=== PATIENT | male | born 1960 | race Native Hawaiian/Other Pacific Islander ===

== ENCOUNTER 2018-01-15 02:38 | Emergency (ER) | payer OTHER ==
[~2018-01-15] VITALS: Ht 182.9 cm; Wt 99.8 kg
[~2018-01-15 02:38] MED LIST: ASPIRIN ADULT L81 MG PO; METHADONE40 MG PO; [UNRECOGNIZED DRUG - OTHER] PO
[2018-01-15 03:47] LABS: PLATELET COUNT 210 K/uL (142-355)
[2018-01-15 03:50] LABS: POTASSIUM 3.7 mmol/L (3.6-5.2)
[2018-01-15 04:25] VITALS: BP 145/86; TEMP 98.6
== END 2018-01-15 04:25 | disposition home or self-care (01) ==
LOC: ED 02:38
DX: K59.09 Other constipation (principal); R11.2 Nausea with vomiting, unspecified
CPT/HCPCS: 36415; 74022; 80053; 81000; 82550; 82553; 84484; 85027; 93005; 96365; 96374; 96375; 99284; J2405

== ENCOUNTER 2019-01-21 12:11 | Emergency (ER) | payer OTHER ==
[~2019-01-21] VITALS: Ht 182.9 cm; Wt 99.8 kg
[2019-01-21 12:11] VITALS: BP 160/78; TEMP 98.1
== END 2019-01-21 15:08 | disposition home or self-care (01) ==
LOC: ED 12:11
DX: S20.212A Contusion of left front wall of thorax, initial encounter (principal); W19.XXXA Unspecified fall, initial encounter; Z87.81 Personal history of (healed) traumatic fracture
CPT/HCPCS: 99282; J2270; J2550

== ENCOUNTER 2019-11-07 09:56 | Outpatient (CLI) | payer OTHER ==
[2019-11-07 10:35] LABS: PLATELET COUNT 207 K/uL (142-355)
[2019-11-07 11:05] LABS: POTASSIUM 4.2 mmol/L (3.6-5.2)
== END 2019-11-07 23:52 | disposition home or self-care (01) ==
LOC: LABW 09:56
PROVIDERS: Internal Medicine
DX: I10 Essential (primary) hypertension (principal); N52.9 Male erectile dysfunction, unspecified; M25.562 Pain in left knee
CPT/HCPCS: 36415; 80053; 80061; 81000; 84153; 84439; 84443; 85027

== ENCOUNTER 2020-06-11 09:33 | Outpatient (CLI) | payer OTHER | END 2020-06-11 21:43 | disposition home or self-care (01) | LOC: INF 09:33 | PROVIDERS: ATTEND Internal Medicine Endocrinology, Diabetes & Metabolism | DX: Z23 Encounter for immunization (principal) | CPT/HCPCS: 96372 ==

== ENCOUNTER 2020-07-09 08:52 | Outpatient (CLI) | payer OTHER | END 2020-07-09 23:06 | disposition home or self-care (01) | LOC: INF 08:52 | PROVIDERS: ATTEND Internal Medicine Endocrinology, Diabetes & Metabolism | DX: Z23 Encounter for immunization (principal) | CPT/HCPCS: 96372 ==

== ENCOUNTER 2020-08-08 10:20 | Outpatient (CLI) | payer OTHER ==
[2020-08-08 10:54] LABS: PLATELET COUNT 204 K/uL (142-355)
[2020-08-08 11:59] LABS: POTASSIUM 4.1 mmol/L (3.6-5.2)
== END 2020-08-08 21:45 | disposition home or self-care (01) ==
LOC: LABW 10:20
PROVIDERS: ATTEND Internal Medicine
DX: I10 Essential (primary) hypertension (principal)
CPT/HCPCS: 80053; 80061; 81000; 84439; 84443; 85027; 85379

== ENCOUNTER 2021-01-25 07:41 | Emergency (ER) | payer OTHER ==
[~2021-01-25] VITALS: Ht 182.9 cm; Wt 98.9 kg
[2021-01-25 07:50] VITALS: TEMP 99
[2021-01-25 10:06] VITALS: BP 171/88
== END 2021-01-25 10:10 | disposition home or self-care (01) ==
LOC: ED 07:41
DX: L03.211 Cellulitis of face (principal)
CPT/HCPCS: 90715; 96372; 99283; J0696

== ENCOUNTER 2021-06-14 16:11 | Emergency (ER) | payer OTHER ==
[~2021-06-14] VITALS: Ht 182.9 cm; Wt 98.9 kg
[2021-06-14 16:40] VITALS: TEMP 98.8
[2021-06-14 17:40] VITALS: BP 150/74
== END 2021-06-14 17:42 | disposition home or self-care (01) ==
LOC: ED 16:11
DX: K52.89 Other specified noninfective gastroenteritis and colitis (principal)
CPT/HCPCS: 96372; 99282; J2405

== ENCOUNTER 2021-06-15 14:36 | Emergency (ER) | payer OTHER ==
[~2021-06-15] VITALS: Ht 182.9 cm; Wt 98.9 kg
[2021-06-15 15:26] LABS: PLATELET COUNT 254 K/uL (142-355)
[2021-06-15 18:06] VITALS: BP 167/81; TEMP 98.9
== END 2021-06-15 18:09 | disposition home or self-care (01) ==
LOC: ED 14:36
PROVIDERS: Emergency Medicine
DX: F41.8 Other specified anxiety disorders (principal)
CPT/HCPCS: 80053; 81000; 85027; 96372; 99283; J2060

== ENCOUNTER 2022-08-14 08:59 | Outpatient (CLI) | payer OTHER ==
[2022-08-14 09:40] LABS: PLATELET COUNT 230 K/uL (142-355)
[2022-08-14 11:17] LABS: POTASSIUM 4.5 mmol/L (3.6-5.2)
== END 2022-08-14 19:08 | disposition home or self-care (01) ==
LOC: US 08:59 → LABW 08:59 → US 11:00 → LABW 19:08
PROVIDERS: ATTEND Nurse Practitioner Family
DX: R10.11 Right upper quadrant pain (principal)
CPT/HCPCS: 36415; 80053; 82150; 83690; 85027